=== PATIENT | female | born 1990 | race Caucasian/White ===

== ENCOUNTER 2017-02-23 23:38 | Emergency (ER) | payer MEDICAID ==
[2017-02-23 23:48] VITALS: BP 124/86; PULSE 93; TEMP 98.2
[2017-02-24] MEDS ORDERED: Tetracaine 0.5% Ophth 2 ML BOTTLE OU STA (00:22)
--- NOTE | 2017-02-24 00:33 | ED PDOC ---
Arrival/HPI - General Chief Complaint: Chemical Exposure Time Seen by Provider: 02/24/17 00:12 Historian: Patient - History of Present Illness Narrative History of Present Illness (Text): 02/24/17 00:26 26 year old female, with no significant past medical history, presents to the Emergency department complaining of eye irritation prior to arrival. Patient states she was cleaning the bathroom using a combination of bleach, laundry detergent and other cleaning solution in a closed environment when the fumes began to irritate her eyes. Patient informs worsening burning sensation bringing her to the Emergency department. Patient denies any direct contact of chemicals to the eyes, chest pain, shortness of breath, abdominal pain, fever, nausea, vomiting, diarrhea, trauma or any other complaints. Time/Duration: Prior to Arrival Symptom Onset: Sudden Symptom Course: Unchanged Quality: Burning Activities at Onset: Other (Cleaning ) Context: Home Past Medical History - Provider Review Nursing Documentation Reviewed: Yes - Cardiac Hx Cardiac Disorders: No - Pulmonary Hx Respiratory Disorders: No - Neurological Hx Neurological Disorder: No - HEENT Hx HEENT Disorder: No - Renal Hx Renal Disorder: No - Endocrine/Metabolic Hx Endocrine Disorders: No - Hematological/Oncological Hx Blood Disorders: No - Integumentary Hx Dermatological Disorder: No - Musculoskeletal/Rheumatological Hx Musculoskeletal Disorders: No - Gastrointestinal Hx Gastrointestinal Disorders: No - Genitourinary/Gynecological Hx Genitourinary Disorders: No - Psychiatric Hx Psychophysiologic Disorder: No Hx Substance Use: No Family/Social History - Physician Review Nursing Documentation Reviewed: Yes Family/Social History: No Known Family HX Smoking Status: Never Smoked Hx Alcohol Use: No Hx Substance Use: No Allergies/Home Meds Allergies/Adverse Reactions: Allergies No Known Allergies Allergy (Verified 02/23/17 23:48) Home Medications: Home Meds Medication Instructions Recorded Confirmed No Known Home Med 02/23/17 02/23/17 Review of Systems - Physician Review All systems were reviewed & negative as marked: Yes - Review of Systems Constitutional: Normal. absent: Fevers Eyes: Eye Pain (burning s/p fumes from bleach+detergent ) ENT: Normal Respiratory: Normal. absent: SOB Cardiovascular: Normal. absent: Chest Pain Gastrointestinal: Normal. absent: Abdominal Pain, Nausea, Vomiting Genitourinary Female: Normal Musculoskeletal: Normal Skin: Normal Neurological: Normal Endocrine: Normal Hemo/Lymphatic: Normal Psychiatric: Normal Physical Exam Vital Signs Reviewed: Yes Vital Signs Temp Pulse Resp BP Pulse Ox 02/24/17 00:06 22 98 02/23/17 23:49 98.2 F 93 H 22 124/86 100 02/23/17 23:48 98.2 F 93 H 22 124/86 100 Temperature: Afebrile Blood Pressure: Normal Pulse: Regular Respiratory Rate: Normal Appearance: Positive for: Well-Appearing, Non-Toxic Pain Distress: None Mental Status: Positive for: Alert and Oriented X 3 - Systems Exam Head: Present: Atraumatic, Normocephalic Pupils: Present: PERRL, Other (minimal injection of both eyes. No apparent corneal injury. No foreign body noted. ) Extroacular Muscles: Present: EOMI Conjunctiva: Present: Normal Mouth: Present: Moist Mucous Membranes Pharnyx: Present: Normal, Other (Airway patent. ) Neck: Present: Normal Range of Motion Respiratory/Chest: Present: Clear to Auscultation, Good Air Exchange. No: Respiratory Distress, Accessory Muscle Use Cardiovascular: Present: Regular Rate and Rhythm, Normal S1, S2. No: Murmurs Abdomen: Present: Normal Bowel Sounds. No: Tenderness, Distention, Peritoneal Signs Back: Present: Normal Inspection Upper Extremity: Present: Normal Inspection. No: Cyanosis, Edema Lower Extremity: Present: Normal Inspection. No: Edema Neurological: Present: GCS=15, CN II-XII Intact, Speech Normal Skin: Present: Warm, Dry, Normal Color. No: Rashes Psychiatric: Present: Alert, Oriented x 3, Normal Insight, Normal Concentration Medical Decision Making ED Course and Treatment: 02/24/17 00:38 Impression: 26 year old female presents to the Emergency department for inflammation of eyes. Plan: -- Tetracaine -- Reassess and disposition Progress Notes: - Medication Orders Current Medication Orders: Discontinued Medications Prednisolone Acetate (Pred Forte 1% Opht Susp) 0.25 ml OD STAT STA Stop: 02/24/17 00:38 Tetracaine HCl (Tetracaine 0.5% Ophth Soln) 1 drop OU STAT STA Stop: 02/24/17 00:23 Last Admin: 02/24/17 00:33 Dose: 1 drop - Scribe Statement The provider has reviewed the documentation as recorded by the Scribe Betty Charlton. All medical record entries made by the Scribe were at my direction and personally dictated by me. I have reviewed the chart and agree that the record accurately reflects my personal performance of the history, physical exam, medical decision making, and the department course for this patient. I have also personally directed, reviewed, and agree with the discharge instructions and disposition. Disposition/Present on Arrival - Present on Arrival Any Indicators Present on Arrival: No History of DVT/PE: No History of Uncontrolled Diabetes: No Urinary Catheter: No History of Decub. Ulcer: No History Surgical Site Infection Following: None - Disposition Have Diagnosis and Disposition been Completed?: Yes Diagnosis: Chemical conjunctivitis of both eyes Disposition: HOME/ ROUTINE Disposition Time: 01:00 Patient Plan: Discharge Condition: GOOD Additional Instructions: use eye drops twice daily for 3 days only. Forms: [employer] (Gabonese)
[2017-02-24] MEDS ORDERED: PrednisoLONE 1% Opht Susp(5 ml) OD STA (00:37)
[2017-02-24 01:29] VITALS: RESP 18; O2SAT 99
== END 2017-02-24 01:29 | disposition home or self-care (01) ==
LOC: ED 23:38
DX: H10.213 Acute toxic conjunctivitis, bilateral (principal)